=== PATIENT | female | born 2000 | race Caucasian/White ===

== ENCOUNTER 2018-05-02 18:19 | Emergency (ER) | payer MEDICAID ==
[~2018-05-02] VITALS: Ht 160 cm; Wt 69.4 kg
[2018-05-02 18:43] VITALS: Ht 160 cm; Wt 69.4 kg
[2018-05-02 21:33] VITALS: BP 115/65
== END 2018-05-02 21:33 | disposition home or self-care (01) ==
LOC: ED 18:19
DX: J06.9 Acute upper respiratory infection, unspecified (principal); B34.9 Viral infection, unspecified